=== PATIENT | male | born 2005 | race Caucasian/White ===

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

== ENCOUNTER 2023-10-18 17:21 | Emergency (ER) | payer OTHER, SELFPAY ==
[2023-10-18 18:13] VITALS: BP 138/74; PULSE 78; RESP 18; TEMP 37.7; O2SAT 100
--- NOTE | 2023-10-18 18:21 | ED.EAR ---
HPI - Ear Problem General Chief complaint: Ear Stated complaint: Left Ear Pain Source: patient Mode of arrival: ambulatory Limitations: no limitations History of Present Illness HPI Narrative: 18-year-old male presented for complaint of left ear pain worsening over the past few days. Endorses for about 1 week he has had nasal congestion and drainage. Has been taking ibuprofen for ear pain. Endorses occasional ear drainage and muffled hearing. Denies dizziness, nausea, vomiting, fevers or chills. Rates pain 03/05 MD Complaint: ear pain Related Data Allergies Allergy/AdvReac Type Severity Reaction Status Date / Time No Known Allergies Allergy Verified 10/18/23 17:55 Review of Systems Review of Systems: CONSTITUTIONAL: Denies malaise, chills, or fever. EYES: Denies visual changes, redness, or discharge. ENT: Denies sinus pain, and sore throat. Reports ear pain, rhinorrhea, congestion CARDIOVASCULAR: Denies chest pain, palpitations, or edema. RESPIRATORY: Denies cough or dyspnea. GASTROINTESTINAL: Denies abdominal pain, nausea, vomiting, diarrhea SKIN: Denies rash or itching. MUSCULOSKELETAL: Denies myalgia. NEUROLOGIC: Denies headache. All systems reviewed & are unremarkable except as noted in HPI and below PMFSH Past Medical History Medical History Boxers fracture right hand Social History Social History Gender identity (if verbalized by the patient): Male Comments At time of signature, agree with nursing past medical, surgical, social and family history. There is no relevant family history pertinent to the presenting complaint Exam Narrative: GENERAL: appears in pain, nontoxic, in no acute distress. EYES: PERRLA, conjunctivae clear ENT: Nares clear. Mucous membranes moist. right TM pearly sevilla with dull light reflex; left TM erythematous, bulging and intact; canal also erythematous with swelling and tenderness, no drainage no tragal tenderness. Oropharynx not erythematous without lesions. NECK: Supple. No lymphadenopathy CHEST: Clear to auscultation, breath sounds equal. HEART: Regular rate and rhythm. No murmur heard. SKIN: Warm, dry, no rash. NEURO: Alert and oriented x3. PSYCH: Normal mood and affect Course Course Emergency Course: Patient is aware of diagnosis, understands and agrees to treatment plan. Anticipatory guidance given. Patient agrees to follow-up as directed and is aware of reasons to seek care at the emergency department. Portions of this record may have been created with voice recognition software Level of Care: Express Care Visit Vital Signs Vital signs: Vital Signs Temperature 99.8 F H 10/18/23 18:13 Pulse Rate 78 10/18/23 18:13 Respiratory Rate 18 10/18/23 18:13 Blood Pressure 138/74 10/18/23 18:13 Pulse Oximetry 100 10/18/23 18:13 Temperature 99.8 F H 10/18/23 18:13 Pulse Rate 78 10/18/23 18:13 Respiratory Rate 18 10/18/23 18:13 Blood Pressure 138/74 10/18/23 18:13 Pulse Oximetry 100 10/18/23 18:13 Reviewed Medical Decision Making MDM Narrative Medical decision making narrative: discussed physical exam findings consistent with left AOM and otitis externa. Advised supportive measures and signs/symptoms to go to the ER. Patient is appropriate for outpatient treatment and follow-up. Differential Diagnosis Differential Diagnosis: Coronavirus, strep pharyngitis, allergic rhinitis, upper respiratory tract infection, sinusitis, rhinosinusitis, nasopharyngitis, viral pharyngitis, otitis media, otitis externa, eustachian tube dysfunction, foreign body, cerumen impaction. Vital Signs Vital Signs: Vital Signs Temperature 99.8 F H 10/18/23 18:13 Pulse Rate 78 10/18/23 18:13 Respiratory Rate 18 10/18/23 18:13 Blood Pressure 138/74 10/18/23 18:13 Pulse Oximetry 100 10/18/23 18:13 Temperature
== END 2023-10-18 18:41 | disposition home or self-care (01) ==
PROVIDERS: Emergency Provider Nurse Practitioner Family
DX: H66.92 Otitis media, unspecified, left ear (principal); H60.92 Unspecified otitis externa, left ear
CPT/HCPCS: 99213; G0463

== ENCOUNTER 2023-11-17 08:25 | Emergency (ER) | payer OTHER, SELFPAY ==
[2023-11-17 08:31] VITALS: BP 121/84; PULSE 67; RESP 18; TEMP 36.3; O2SAT 99
--- NOTE | 2023-11-17 08:39 | ED.EAR ---
HPI - Ear Problem General Chief complaint: Ear Stated complaint: Left Ear Pain History of Present Illness HPI Narrative: Patient presents with left ear pain. Patient states 2 weeks ago he was treated for ear infection and given Amoxil and some ear drops. Patient states he has not been swimming since incident but complains of drainage from the ear and continues left ear pain. Patient is not taking anything [id number] does have some nasal congestion denies any sore throat no cough no chest pain no shortness of breath. Related Data Allergies Allergy/AdvReac Type Severity Reaction Status Date / Time No Known Allergies Allergy Verified 11/17/23 08:36 Review of Systems Review of Systems: CONSTITUTIONAL: Denies chills, or sweats. Reports fever and generalized body aches EYES: Denies visual changes, redness, or discharge. ENT: Denies otalgia. Reports nasal congestion runny nose and sore throat CARDIOVASCULAR: Denies chest pain, palpitations, or edema. RESPIRATORY: Denies dyspnea. Reports occasional cough GASTROINTESTINAL: Denies abdominal pain, nausea, vomiting, or diarrhea. GENITOURINARY: Denies dysuria or hematuria. SKIN: Denies rash or itching. MUSCULOSKELETAL: Denies back pain, joint pain, or myalgia. Reports generalized body aches NEUROLOGIC: Denies headache, numbness, or weakness. PSYCHIATRIC: Denies anxiety or depression. [facility] Past Medical History Medical History Boxers fracture right hand Social History Social History Gender identity (if verbalized by the patient): Male Comments At time of signature, agree with nursing past medical, surgical, social and family history. There is no relevant family history pertinent to the presenting complaint Exam Narrative: The patient is a well-developed, well-nourished in no acute distress. SKIN: Skin is warm and dry without erythema, swelling or exudate. There is good turgor. No tenting. HEAD: Atraumatic. Normocephalic. No temporal or scalp tenderness. EYES: Moist and bright. Sclera and conjunctivae normal. No discharge. PERRLA. Extraocular motions intact. Gross visual acuity intact. EARS: Pinna is normal shape and contour. Clear external auditory canals. TM pearly staples with good cone of light, no erythema or suppuration. Bilateral cerumen noted no gross hearing deficit. NOSE: pink, moist mucosa with good air movement. Clear rhinorrhea without nasal flaring. Septum midline. Mouth: moist mucous membranes. THROAT; mild erythema noted to posterior oropharynx with moderate postnasal drainage. Without exudate or ulceration.. Uvula midline. Normal movement of soft palate. NECK: Supple and nontender with full range of motion without discomfort. No meningeal signs. LUNGS: Equal and bilateral breath sounds without wheezes, rales or rhonchi. CHEST: The chest wall is without retractions or use of accessory muscles. HEART: Has a regular rate and rhythm without murmur, gallops, click or rub. ABDOMEN: Soft, nontender with positive active bowel sounds. No rebound tenderness. EXTREMITIES: Without cyanosis, clubbing or edema. Equal 2+ distal pulses and 2 second capillary refill noted. NEUROLOGIC: alert, active, . The patient moves all extremities with normal muscle strength. Normal muscle tone is noted. Normal coordination is noted. NO focal neurological findings noted. HENMT: Ears: Abnormal EAC present erythema and EAC tenderness on the left and TM abnormal bulging on the left and with fluid behind the TM Course Course Level of Care: Express Care Visit Vital Signs Vital signs: Vital Signs Temperature 36.3 C L 11/17/23 08:31 Pulse Rate 67 11/17/23 08:31 Respiratory Rate 18 11/17/23 08:31 Blood Pressure 121/84 11/17/23 08:31 Pulse Oximetry 99 11/17/23 08:31 Oxygen Delivery Room Air 11/17/23 08:31 Temperature 36.3 C L 11/17/23 08:31 Pulse
== END 2023-11-17 08:43 | disposition home or self-care (01) ==
PROVIDERS: Emergency Provider Nurse Practitioner Family
DX: H60.92 Unspecified otitis externa, left ear (principal); H66.92 Otitis media, unspecified, left ear
CPT/HCPCS: 99213; G0463

== ENCOUNTER 2024-05-21 17:46 | Emergency (ER) | payer OTHER, SELFPAY ==
[2024-05-21 18:12] VITALS: BP 140/80; PULSE 94; RESP 18; TEMP 37.8; O2SAT 98
[2024-05-21 19:05] LABS: EDCOVIDSCREEN Negative (Negative); EDINFLUASCREEN Negative (Negative); EDINFLUBSCREEN Negative (Negative)
--- NOTE | 2024-05-21 19:28 | ED_ITS ---
HPI - General Adult General Chief complaint: Nausea/Vomiting/Diarrhea Stated complaint: flu/cold symptoms Time Seen by Provider: 05/21/24 19:20 Source: patient, RN notes reviewed and old records reviewed Mode of arrival: ambulatory Limitations: no limitations History of Present Illness HPI narrative: 18 year old male presents to [facility] care with complaints of nausea vomiting yesterday and at 0200 he started having some diarrhea. Patient reports that he has had some chills and he states that he feels weak. Patient reports that he does have a sore throat but he thinks it is from throwing up. Patient reports th at he has not taken any OTC medication for his symptoms. Patient has 100F temperature at time of triage. Patient reports that he had to call off work today and needs work note. MD complaint: nausea vomiting and diarrhea, throat sore temp Onset (ago): day(s) (day 2 of symptoms) Severity: moderate Treatments prior to arrival: none Related Data Allergies Allergy/AdvReac Type Severity Reaction Status Date / Time No Known Allergies Allergy Verified 05/21/24 18:14 Review of Systems Review of Systems: CONSTITUTIONAL:Reports malaise, chills, sweats, or fever. EYES: Denies visual changes, redness, or discharge. ENT: Reports rhinorrhea, congestion, no sinus pain, no otalgia and positive for sore throat. CARDIOVASCULAR: Denies chest pain, palpitations, or edema. RESPIRATORY: Reports no cough.? Denies dyspnea. GASTROINTESTINAL: Denies abdominal pain, positive for nausea, vomiting, diarrhea SKIN: Denies rash or itching. MUSCULOSKELETAL: reports myalgia. state feels weak NEUROLOGIC: Denies headache. All systems reviewed & are unremarkable except as noted in HPI and below PMFSH Past Medical History Medical History Ear infection Strep throat Boxers fracture right hand Social History Social History Smoking status: Current some day smoker Gender identity (if verbalized by the patient): Male Comments At time of signature, agree with nursing past medical, surgical, social and family history. There is no relevant family history pertinent to the presenting complaint Exam Narrative: GENERAL:Ill-appearing, well-nourished, and in no acute distress. HEAD: Normocephalic EYES: PERRLA, conjunctivae clear ENT: Nares clear, turbinates edematous and erythematous, clear discharge. Mucous membranes moist. TM pearly sevilla with dull light reflex bilaterally; no tragal tenderness. Oropharynx erythematous without lesions. Tonsils red enlarged and without exudate, no drooling, no hoarseness, no trismus, uvula midline and swollen. NECK: Supple. lymphadenopathy CHEST: Clear to auscultation, breath sounds equal. No wheezing, rhonchi, rales, or stridor. No respiratory distress, speaks in full sentences.SAO2 98% on room air HEART: Regular rate and rhythm. No murmur heard. SKIN: Warm, dry, no rash. NEURO: Alert and oriented x3. PSYCH: Normal mood and affect Course Course Emergency Course: Patient is aware of diagnosis, understands and agrees to treatment plan.? Anticipatory guidance given.? Patient agrees to follow-up as directed and is aware of reasons to seek care at the emergency department. Portions of this record may have been created with voice recognition software Level of Care: Express Care Visit Vital Signs Vital signs: Vital Signs Temperature 37.8 C H 05/21/24 18:12 Pulse Rate 94 05/21/24 18:12 Respiratory Rate 18 05/21/24 18:12 Blood Pressure 140/80 05/21/24 18:12 Pulse Oximetry 98 05/21/24 18:12 Oxygen Delivery Room Air 05/21/24 18:12 Temperature 37.8 C H 05/21/24 18:12 Pulse Rate 94 05/21/24 18:12 Respiratory Rate 18 05/21/24 18:12 Blood Pressure 140/80 05/21/24 18:12 Pulse Oximetry 98 05/21/24 18:12 Oxygen Delivery Room Air 05/21/24 18:12 Reviewed Medical Decision Making Differential Diagnosis Differential Diagnosis: URI, viral syndrome, influenza COVID, strep pharyngitis, nausea vomiting and d iarrhea. Medical Records Medical records reviewed: Yes I reviewed the external patient's medical records. Vital Signs Vital Signs: Vital Signs Temperature 37.8 C H 05/21/24 18:12 Pulse Rate 94 05/21/24 18:12 Respiratory Rate 18 05/21/24 18:12 Blood Pressure 140/80 05/21/24 18:12 Pulse Oximetry 98 05/21/24 18:12 Oxygen Delivery Room Air 05/21/24 18:12 Temperature 37.8 C H 05/21/24 18:12 Pulse Rate 94 05/21/24 18:12 Respiratory Rate 18 05/21/24 18:12 Blood Pressure 140/80 05/21/24 18:12 Pulse Oximetry 98 05/21/24 18:12 Oxygen Delivery Room Air 05/21/24 18:12 Lab Data Lab results reviewed: Yes I reviewed the patient's lab results. Lab results narrative: STREP SCREEN POSITIVE, Influenza A negative, Influenza B negative, COVID antigen negative Labs: Lab Results 05/21/24 05/21/24 Range/Units 18:45 19:32 POC Influenza A Ag Negative (Negative) POC Influenza B Ag Negative (Negative) POC SARS CoV-2 Ag Negative (Negative) POC Grp A Strep Screen Positive (Negative) reviewed Critical Care Time Critical Care Time Critical Care Time: No Discharge Plan Discharge Clinical Impression: Gastroenteritis, Acute streptococcal pharyngitis Patient Disposition: Home, Self-Care Condition: Stable Instructions: Antibiotic Form, Strep Throat (ED), Clear Liquid Diet (ED) Additional Instructions: Clear liquids for the next 8-10 hours, then advance to a bland diet as tolerated A bland diet can consist of--BRAT diet which is bananas, rice, applesauce, and toast Avoid fried, greasy, fatty, fried foods Avoid caffeine, nicotine, and alcohol Return to your regular diet in the next 3-4 days Medication as directed for nausea and vomiting Tylenol only for pain or fever Sometimes ibuprofen/Aleve can cause increased stomach upset [id number] Imodium if develop diarrhea Follow-up with her PCP if continued problems or uncontrolled pain You tested positive for Group A strep . Take the entire course of antibiotics. Throw away your current toothbrush and begin using a new toothbrush in 48 hours in order to prevent re-infection. Sanitize all reusable water bottles . Do not share items with others. Salt water gargles may alleviate some of the throat discomfort. You can take Tylenol per the package instructions for pain/fever. If your symptoms persist, change or worsen significantly before you can contact your personal physician then please, without delay, go to the emergency department for further evaluation. Follow-up with PCP in 7-10 days or sooner if needed Follow up with PCP soon in regards to your blood pressure which is elevated above threshold for referral. Blood pressure above 120/80 may indicate pre- hypertension. 140/80 Patient Language: Latvian Prescriptions: New ondansetron 4 mg tablet,disintegrating 4 mg PO Q6H PRN (Reason: nausea and vomiting) Qty: 20 0RF amoxicillin 500 mg capsule 1,000 mg PO Q12H Qty: 40 0RF Rx Instructions: take all doses of medication ondansetron 4 mg tablet,disintegrating 4 mg PO Q6H PRN (Reason: nausea and vomiting) Qty: 14 0RF Follow-up/Referrals: PHYSICIAN,HYDROGEN TREATER [Primary Care Provider] - Stand Alone Forms: Work/School Release IP Time of Disposition: 19:41 Quality Verna Coma Scale Eyes: Open Verbal: Oriented and Alert Motor: Follows Commands [place] Coma Total Score: 15
[2024-05-21 19:40] LABS: EDSTREPNEGPOS1 Positive (Negative)
== END 2024-05-21 19:45 | disposition home or self-care (01) ==
PROVIDERS: Emergency Provider Registered Nurse
DX: K52.9 Noninfective gastroenteritis and colitis, unspecified (principal); J02.0 Streptococcal pharyngitis; Z20.822 Contact with and (suspected) exposure to COVID-19
CPT/HCPCS: 87426; 87804; 87880; 99213; G0463

== ENCOUNTER 2024-07-23 15:20 | Emergency (ER) | payer OTHER, SELFPAY ==
[2024-07-23 15:28] VITALS: BP 132/78; PULSE 76; RESP 20; TEMP 37.3; O2SAT 98
--- NOTE | 2024-07-23 15:31 | ED.URI ---
HPI - URI/Sore Throat General Chief Complaint: Upper Respiratory Infection Stated Complaint: head and chest cold Time Seen by Provider: 07/23/24 15:31 Source: patient and RN notes reviewed Mode of arrival: ambulatory Limitations: no limitations History of Present Illness HPI Narrative: 18-year-old male presented for complaint of cough, nasal congestion headache and body aches. Onset 4 days. States today he felt worse and could not go to work. Taking Tylenol for symptoms. Denies shortness of breath, wheezing nausea, fevers or lethargy. MD elicited complaint: cough Related Data Allergies Allergy/AdvReac Type Severity Reaction Status Date / Time No Known Allergies Allergy Verified 07/23/24 15:24 Review of Systems Review of Systems: per HPI [facility], [facility] Past Medical History Medical History Ear infection Strep throat Boxers fracture right hand Social History Social History Smoking status: Current some day smoker Gender identity (if verbalized by the patient): Male Exam Narrative: GENERAL: Ill-appearing, nontoxic no acute distress. EYES: conjunctivae clear ENT: Mucous membranes moist. Bilateral TMs erythematous, bulging and intact; canal not erythematous, no drainage no tragal tenderness. Oropharynx erythematous no drooling, no hoarseness, no trismus, uvula midline. No tripod positioning, muffled voice, soft palate or pharyngeal wall bulging NECK: Supple. No lymphadenopathy CHEST: Clear to auscultation, breath sounds equal. No wheezing, rhonchi, rales, or stridor. No respiratory distress, speaks in full sentences. HEART: Regular rate and rhythm. SKIN: Warm, dry, no rash. NEURO: Alert and oriented x3. PSYCH: Normal mood and affect Course Course Emergency Course: Patient is aware of diagnosis, understands and agrees to treatment plan. Anticipatory guidance given. Patient agrees to follow-up as directed and is aware of reasons to seek care at the emergency department. Portions of this record may have been created with voice recognition software Level of Care: Express Care Visit Vital Signs Vital signs: Vital Signs Temperature 99.2 F 07/23/24 15:28 Pulse Rate 76 07/23/24 15:28 Respiratory Rate 20 07/23/24 15:28 Blood Pressure 132/78 07/23/24 15:28 Pulse Oximetry 98 07/23/24 15:28 Oxygen Delivery Room Air 07/23/24 15:28 Temperature 99.2 F 07/23/24 15:28 Pulse Rate 76 07/23/24 15:28 Respiratory Rate 20 07/23/24 15:28 Blood Pressure 132/78 07/23/24 15:28 Pulse Oximetry 98 07/23/24 15:28 Oxygen Delivery Room Air 07/23/24 15:28 reviewed MDM - URI/Sore Throat MDM Narrative Medical decision making narrative: Negative flu and COVID, result reviewed with pt. bilateral AOM noted. Advise supportive treatments. Patient is appropriate for outpatient treatment and follow-up. Differential Diagnosis Differential diagnosis: Likely upper respiratory infection, otitis media, sinusitis, viral infection, bronchitis, influenza and pharyngitis Lab Data Labs: Lab Results 07/23/24 Range/Units 15:28 POC Influenza A Ag Negative (Negative) POC Influenza B Ag Negative (Negative) POC SARS CoV-2 Ag Negative (Negative) Discharge Plan Discharge Clinical Impression: Otitis media Patient Disposition: Home, Self-Care Condition: Stable Instructions: Antibiotic Form, Ear Infection (ED) Additional Instructions: Take antibiotics as directed for double ear infection Recommendations: antihistamine such as Benadryl, Zyrtec or Deann for sinus congestion Flonase nasal spray, 1 spray in each nostril once daily until symptoms improve Symptomatic treatment includes: rest, fluids, and increase humidity of the air at home. Tylenol 1000mg,ibuprofen 800mg every 8 hours as needed to reduce fever, pain Please schedule a follow-up visit with your personal physician If your symptoms persist, change or worsen significantly, go to the emergency department for further evaluation. Patient Language: Arabic Prescriptions: New amoxicillin-pot clavulanate 875-125 mg tablet 1 tablet PO Q12H 7 Days Qty: 14 0RF Follow-up/Referrals: PHYSICIAN,WILDLIFE REHABILITATOR [Primary Care Provider] - Stand Alone Forms: Work/School Release IP Time of Disposition: 16:12
[2024-07-23 15:46] LABS: EDCOVIDSCREEN Negative (Negative); EDINFLUASCREEN Negative (Negative); EDINFLUBSCREEN Negative (Negative)
== END 2024-07-23 16:15 | disposition home or self-care (01) ==
PROVIDERS: Emergency Provider Nurse Practitioner Family
DX: H66.93 Otitis media, unspecified, bilateral (principal); Z20.822 Contact with and (suspected) exposure to COVID-19; F17.200 Nicotine dependence, unspecified, uncomplicated
CPT/HCPCS: 87426; 87804; 99213; G0463

== ENCOUNTER 2024-08-21 17:27 | Emergency (ER) | payer OTHER, SELFPAY ==
--- OUTSIDE RECORDS SUMMARY | 2024-08-21 17:29 | XMS_ITS | Referral Summary ---
Author Organization [facility] [address] [place] [address] Phone Care Team Providers Care Data Sciences Director Name Role Phone Redd Wallace MD Primary Care Provider [phone] Allergies Active Allergy Reactions Criticality Noted Date Comments Latex Medications No known medications Active Problems No known active problems Social History Tobacco Use Types Packs/Day Years Used Date Smoking Tobacco: Unknown Tobacco Cessation:Counseling Given: Not Answered Personal Safety Answer Date Recorded Getting School Help Needed Not on file 07/26 Sex and Gender Information Value Date Recorded Sex Assigned at Not on file 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 Gender Identity Not on file Sexual Orientation Not on file Last Filed Vital Signs Vital Sign Reading Time Taken Comments Blood Pressure 110/80 03/25/2024 9:43 AM CDT Pulse 110 03/25/2024 9:43 AM CDT Temperature 36.7 C (98.1 F) 03/25/2024 9:43 AM CDT Respiratory Rate 19 03/25/2024 9:43 AM CDT Oxygen Saturation 99% 03/25/2024 9:43 AM CDT Inhaled Oxygen Concentration - - Weight 95.7 kg (211 lb) 03/25/2024 9:43 AM CDT Height 175.3 cm (5' 9 ) 03/25/2024 9:43 AM CDT Body Mass Index 31.16 03/25/2024 9:43 AM CDT Plan of Treatment Not on file Insurance [place] [id number] [employer] OPEN ACCESS Care Teams Data Sciences Director Relationship Specialty Start Date End Date Redd Wallace MD [address] [place] [address] PCP - General 12/13/15
--- OUTSIDE RECORDS SUMMARY | 2024-08-21 17:29 | XMS_ITS | Clinical Summary ---
Author Organization [facility] Address [address] [place] [address] Phone Care Team Providers Care Steam Table Worker Name Role Phone Provider, None Primary Care Provider Unavailabl e Allergies No known active allergies Medications guaiFENesin (ROBITUSSIN CHEST CONGESTION) 100 MG/5ML Syrup Take 10 mL by mouth every 4 hours as needed. 118 mL 0 6 Active methylphenidate (RITALIN) 20 MG Tablet TAKE ONEHALF TABLET BY MOUTH EVERY MORNING AND NOON FOR ONE WEEK THEN TAKE ONE TABLET BY MOUTH EVERY MORNING AND TAKE ONE TABLET NOON THEREA 0 8 Active albuterol 108 (90 Base) MCG/ACT Aerosol Solution take 2 Puffs by inhalation every 6 hours as needed for Wheezing. 18 g Active Social History Tobacco Use Types Packs/Day Years Used Date Smoking Tobacco: Never Passive Smoke Exposure: Yes Smokeless Tobacco: Never Tobacco Cessation:Counseling Given: Not Answered Alcohol Use Standard Drinks/Week Comments Yes 0 (1 standard drink = 0.6 oz pur e alcohol) occasionally Sex and Gender Information Value Date Recorded Sex Assigned at Not on file Legal Sex Male 8:10 PM CDT Gender Identity Not on file Sexual Orientation Not on file Last Filed Vital Signs Vital Sign Reading Time Taken Comments Blood Pressure 154/91 01/28/2023 5:02 AM CDT Pulse 98 01/28/2023 5:02 AM CDT Temperature 36.2 C (97.2 F) 01/28/2023 5:02 AM CDT Respiratory Rate 18 01/28/2023 5:02 AM CDT Oxygen Saturation 97% 01/28/2023 5:02 AM CDT Inhaled Oxygen Concentration - - Weight 92.5 kg (204 lb) 01/28/2023 5:02 AM CDT Height 175.3 cm (5' 9 ) 01/28/2023 5:02 AM CDT Body Mass Index 30.13 01/28/2023 5:02 AM CDT Plan of Treatment Health Maintenance Due Date Last Done Comments Hepatitis C Virus (HCV) Screening 2003 Meningococcal B Immunization (2 of 2 - Bexsero SCDM 2-dose series) 07/14/2020 01/12/2020 Influenza Immunization (#1) 01/26/20240 01/2017, 03/21/2007, 06/15/2004 SARS-COV-2 Immunization ( season) 2024 Respiratory Syncytial Virus (RSV) Immunization (Adult) (1 - 1-dose 75+ series) 10/10/2078 Hepatitis B Immunization Completed 004, 05/03/2004, 02/11/2004, Additional history exists Pneumococcal Immunization Combined Aged Out 01/26/2005, 05/03/2004, 02/11/2004, Additional history exists No longer eligible based on patient's age to complete this topic Hepatitis A Immunization Discontinued 12/13/2006, 01/25 Measles Mumps Rubella (MMR) Immunization Discontinued 11/06/2007, 10/20/2004 Varicella Immunization Discontinued 11/06/2007, 2004 Polio (IPV) Immunization Discontinued 009, 05/03/2004, 05/03/2004, Additional history exists DTaP/Tdap/Td Immunization Discontinued 2014, 01/11/2009, 01/26/2005, Additional history exists TdaP Immunization Completed 01/04/2015 Human Papillomavirus (HPV) Immunization Completed 01/08/2019, 04/04/2017 Meningococcal Immunization (ACWY) Completed 01/12/2020, 01/12/2015 Rotavirus Immunization Aged Out No lo nger eligible based on patient's age to complete this topic Insurance [address] [place] [address] Care Teams Steam Table Worker Relationship Specialty Start Date End Date Provider, None [place] PCP - General 01/28/23
--- OUTSIDE RECORDS SUMMARY | 2024-08-21 17:29 | XMS_ITS | Clinical Summary ---
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 Gender Identity Not on file Sexual Orientation Not on file Obstetrics History Last Filed Vital Signs Vital Sign Reading [...] 03/25/2024 9:43 AM CDT Plan of Treatment Health Maintenance Due Date Last Done Comments Depression Screening 2003 Hepatitis C Screening 2003 Meningococcal B Vaccine (2 o f 2 - Bexsero SCDM 2-dose series) 07/14/2020 01/12/2020 Regular Well Visit/Exam 18-64 10/10/2021 Influenza Vaccine (#1) 2024 7, 03/09/2010, 03/21/2007, Additional history exists DTaP/Tdap/Td Vaccine (7 - Td or Tdap) 01/04/2025 01/04/2015, 01/11/2009, 01/26/2005, Additional history exists Hepatitis B Screening Completed 05/03/2004 , 05/03/2004, 02/11/2004, Additional history exists Pneumococcal vaccine <65 Completed 005, 05/03/2004, 02/11/2004, Additional history exists Varicella Vaccines Completed 11/06/2007, 10/20/2004 HPV Vaccines Completed 01/08/2019, 04/04/2017 Meningococcal Vaccine Completed 01/12/2020, 015 Insurance [place] [id number] [employer] OPEN ACCESS Care Teams Stenographer Print Shop Relationship Specialty Start Date End Date Redd Wallace MD [address] [place] [address] PCP - General 12/13/15
[2024-08-21 17:31] VITALS: BP 146/78; PULSE 88; RESP 16; TEMP 36.7; O2SAT 99
--- NOTE | 2024-08-21 17:38 | ED.URI ---
HPI - URI/Sore Throat General Chief Complaint: Upper Respiratory Infection Stated Complaint: flu like symptoms Source: patient and RN notes reviewed Mode of arrival: ambulatory Limitations: no limitations History of Present Illness HPI Narrative: 18-year-old male presented for complaint an episode of vomiting and diarrhea this morning when he woke. Reports body aches, nausea, and decreased appetite throughout the day. Denies Additional emesis or diarrhea. Denies abdominal pain, hematochezia, melena, hematemesis, fevers or chills. Took Pepto-Bismol. Says he missed work today. Related Data Allergies Allergy/AdvReac Type Severity Reaction Status Date / Time No Known Allergies Allergy Verified 08/21/24 17:33 Review of Systems Review of Systems: CONSTITUTIONAL: Denies body aches, fever, chills ENT: Denies rhinorrhea, congestion CARDIOVASCULAR: Denies chest pain, palpitations, or edema. RESPIRATORY: Denies cough or dyspnea. GASTROINTESTINAL: Endorses nausea, vomiting, diarrhea. Denies abdominal pain, hematochezia, melena, hematemesis GENITOURINARY: Denies dysuria, hematuria, or CVA tenderness. SKIN: Denies rash, itching, or wounds. MUSCULOSKELETAL: Denies back pain, joint pain, or myalgia. NEUROLOGIC: Denies headache, numbness, tingling, or weakness. All systems reviewed & are unremarkable except as noted in HPI and below PMFSH Past Medical History Medical History Ear infection Strep throat Boxers fracture right hand Social History Social History Smoking status: Current some day smoker Gender identity (if verbalized by the patient): Male Comments At time of signature, I have reviewed and agree with nursing past medical, surgical, social and family history unless otherwise noted. Please see nursing chart for further information. There is no relevant family history pertinent to the presenting complaint Exam Narrative: GENERAL: Well-appearing, and in no acute distress. EYES: EOMI. Conjunctivae normal. ENT: Mucous membranes pink and moist. CHEST: No respiratory distress. Clear to auscultation. HEART: Regular rate and rhythm. ABDOMEN: abd soft, nondistended, normal active bowel sounds. nontender abdomen; No guarding, rebound tenderness, asymmetry SKIN: Warm, dry, no rash. Capillary refill normal. Normal skin turgor. NEURO: No focal deficits. Alert and oriented x3. Course Course Emergency Course: Patient is aware of diagnosis, understands and agrees to treatment plan. Anticipatory guidance given. Patient agrees to follow-up as directed and is aware of reasons to seek care at the emergency department. Portions of this record may have been created with voice recognition software Level of Care: Express Care Visit Vital Signs Vital signs: Vital Signs Temperature 98.1 F 08/21/24 17:31 Pulse Rate 88 08/21/24 17:31 Respiratory Rate 16 08/21/24 17:31 Blood Pressure 146/78 H 08/21/24 17:31 Pulse Oximetry 99 08/21/24 17:31 Oxygen Delivery Room Air 08/21/24 17:31 Temperature 98.1 F 08/21/24 17:31 Pulse Rate 88 08/21/24 17:31 Respiratory Rate 16 08/21/24 17:31 Blood Pressure 146/78 H 08/21/24 17:31 Pulse Oximetry 99 08/21/24 17:31 Oxygen Delivery Room Air 08/21/24 17:31 MDM - URI/Sore Throat MDM Narrative Medical decision making narrative: Discussed physical exam findings and test results. Advised supportive measures and signs/symptoms to go to the ER. Pt is appropriate for outpt treatment and f/u. Differential Diagnosis Differential diagnosis: Likely viral infection and other (gastroenteritis, dehydration, food poisoning, medication side effect) Discharge Plan Discharge Clinical Impression: Nausea vomiting and diarrhea Patient Disposition: Home, Self-Care Condition: Stable Instructions: Antibiotic Form, Gastroenteritis (ED) Additional Instructions: Flu COVID negative today. It may be too early to detect the virus, therefore we recommend retesting at home in 1-2 days Continue to follow general precautions: frequent handwashing, wear a mask, isolate/social distance, and avoid crowds if you have a fever. You must be fever free for 24 hours without the use of fever reducing medication (Tylenol/ibuprofen) before returning to work/school/crowds. Stay hydrated. Take small sips of fluid containing electrolytes frequently. Clear liquids (broth, jello, tea, sprite, pedialyte) Schneider foods (bananas, rice, applesauce, toast, crackers) Avoid fatty, greasy, fried or spicy foods. Limit dairy until symptoms are improved. You should go to the hospital if you experience persistent nausea and vomiting that does not resolve and does not allow you to tolerate any food or fluids, fevers, increasing abdominal pain, persistent diarrhea, dizziness, fainting, or for any other concerns. Follow up with primary care provider in 3 days. Patient Language: Romanian Prescriptions: New ondansetron 4 mg tablet,disintegrating 4 mg PO Q8H PRN (Reason: nausea and vomiting) Qty: 8 0RF Follow-up/Referrals: PHYSICIAN,CHIEF OF FIELD OPERATIONS [Primary Care Provider] - Stand Alone Forms: Work/School Release IP Time of Disposition: 17:57
[2024-08-21 18:01] LABS: EDCOVIDSCREEN Negative (Negative); EDINFLUASCREEN Negative (Negative); EDINFLUBSCREEN Negative (Negative)
== END 2024-08-21 18:00 | disposition home or self-care (01) ==
PROVIDERS: Emergency Provider Nurse Practitioner Family
DX: R11.2 Nausea with vomiting, unspecified (principal); R19.7 Diarrhea, unspecified; F17.200 Nicotine dependence, unspecified, uncomplicated; Z20.822 Contact with and (suspected) exposure to COVID-19
CPT/HCPCS: 87426; 87804; 99213; G0463